=== PATIENT | female | born 2005 | race Caucasian/White ===

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

== ENCOUNTER 2023-05-06 20:47 | Emergency (ER) | payer BC ==
[~2023-05-06] VITALS: Ht 155 cm; Wt 63.5 kg
[~2023-05-06 20:47] MED LIST: DOXY100C5; ERGO800010
--- NOTE | 2023-05-06 21:09 | ED General ---
General Stated Complaint: CHRONIC SEIZURES Source of Information: Patient, Old Records, Other (MALE FRIEND) History of Present Illness Date Seen by Provider: May 06, 2023 Time Seen by Provider: 20:58 Initial Comments PT ARRIVES VIA POV FROM HOME WITH MALE FRIEND PT STATES SHE HAS HAD 7 SEIZURES IN THE LAST 3 DAYS, WITH 4 TODAY INCLUDING ONE ON THE WAY HERE EPISODES LAST 1-3 MINUTES, NO POST ICTAL SYMPTOMS, NO INCONTINENCE, NO INJURIES AND NOT TONGUE BITING, ETC SHE HAS BEEN SITTING OR LAYING DOWN EVERY TIME. HAS NOT FALLEN AT ANY TIME OR HIT HER HEAD FRIEND STATES SHE "BLACKS OUT, GOES LIMP AND THEN HAS TYPICAL SEIZURE" SHE HAS BEEN HAVING THESE FOR THE LAST YEAR, SHE HAS NEVER SEEN NEUROLOGIST OR HAD ANY TESTING FOR THESE PROBLEMS, AND NOT ON ANY SEIZURE MEDICATIONS. SHE HAS ALSO BEEN DX WITH POTS--THOSE SYMPTOMS ONGOING FOR 3 YEARS, IS ON METOPROLOL AND SEES DR. ROMANO WITH CARDIOLOGY. SHE HAS NOT BEEN ILL RECENTLY--NO FEVER/ SWEATS/CHILLS NO TICK OR MOSQUITO BITES LMP 1 WEEK AGO, NORMAL. NO CONTROL NO SMOKING/VAPING, NO DRUGS, NO ETOH USE. PCP: DR. [facility]IM[facility] Allergies and Home Medications Allergies Coded Allergies: Penicillins (Verified Allergy, Unknown, 04/11/17) ibuprofen (Verified Allergy, Unknown, 04/11/17) sulfamethoxazole (Verified Allergy, Unknown, 04/11/17) trimethoprim (Verified Allergy, Unknown, 04/11/17) Patient Home Medication List Doxycycline Hyclate (Doxycycline Hyclate) 100 Mg Capsule, (Reported) Entered as Reported by: BASHIR VEE on 09/11/222242 Ergocalciferol (Vitamin D2) (Ergocalciferol) 200 Mcg/Ml (8000 Unit/Ml) Drops, (Reported) Entered as Reported by: BASHIR VEE on 09/11/222242 Nitrofurantoin Monohyd/M-Cryst (Macrobid 100 mg Capsule) 100 Mg Capsule, 1 TAB PO BID Prescribed by: APRIL HILLMAN on 05/06/232222 Review of Systems Review of Systems Constitutional: no symptoms reported EENTM: no symptoms reported Respiratory: no symptoms reported Cardiovascular: see HPI Gastrointestinal: no symptoms reported Genitourinary: no symptoms reported Musculoskeletal: no symptoms reported Skin: no symptoms reported Psychiatric/Neurological: See HPI Past Yqpcprw-Zykrco-Navfcb Hx Immunizations Up To Date First/Initial COVID19 Vaccinat: x2 Second COVID19 Vaccination Patrick: carleen Past Medical History Surgery/Hospitalization HX: syncope, autism, depression, seizures, rabbit fever Surgeries: Yes Tonsillectomy Respiratory: No Cardiac: No Neurological: Yes (AUTISTIC, SENSORY ISSUES) Genitourinary: Yes (precocious puberty) Gastrointestinal: No Musculoskeletal: No Endocrine: Yes (precocious puberty) HEENT: No Cancer: No Psychosocial: Yes (AUTISTIC) Depression Integumentary: Yes Physical Exam Vital Signs Vital Signs - First Documented 05/06/23 20:56 Temp 37.0 Pulse 85 Resp 18 B/P (MAP) 134/81 (98) Pulse Ox 98 O2 Delivery Room Air Capillary Refill : Height, Weight, BMI Height: 5'1.00" Weight: 133lbs. oz. 60.586690ff; 31.00 BMI Method:Stated Focused Exam Lactate Level 05/06/23 21:15: Lactic Acid Level 1.45 Lactic Acid Level Laboratory Tests Test 05/06/23 21:15 Lactic Acid Level 1.45 MMOL/L (0.50-2.00) Progress/Results/Core Measures Suspected Sepsis SIRS Temperature: Pulse: Respiratory Rate: Laboratory Tests 05/06/23 21:10: White Blood Count 13.0H Blood Pressure / Mean: 05/06/23 21:15: Lactic Acid Level 1.45 Laboratory Tests 05/06/23 21:10: Creatinine 0.75, Platelet Count 387, Total Bilirubin 0.3 Results/Orders Lab Results Laboratory Tests Test 05/06/23 21:10 05/06/23 21:15 05/06/23 21:40 Range/Units White Blood Count 13.0 H 4.3-11.0 10^3/uL Red Blood Count 4.60 3.80-5.11 10^6/uL Hemoglobin 13.7 11.5-16.0 g/dL Hematocrit 41 35-52 % Mean Corpuscular Volume 90 80-99 fL Mean Corpuscular Hemoglobin 30 25-34 pg Mean Corpuscular Hemoglobin Concent 33 32-36 g/dL Red Cell Distribution Width 12.6 10.0-14.5 % Platelet Count 387 130-400 10^3/uL Mean Platelet Volume 10.4 9.0-12.2 fL Immature Granulocyte % (Auto) 0 % Neutrophils (%) (Auto) 55 42-75 % Lymphocytes (%) (Auto) 35 12-44 % Monocytes (%) (Auto) 7 0-12 % Eosinophils (%) (Auto) 3 0-10 % Basophils (%) (Auto) 1 0-10 % Neutrophils # (Auto) 7.1 1.8-7.8 10^3/uL Lymphocytes # (Auto) 4.6 H 1.0-4.0 10^3/uL Monocytes # (Auto) 0.9 0.0-1.0 10^3/uL Eosinophils # (Auto) 0.4 H 0.0-0.3 10^3/uL Basophils # (Auto) 0.1 0.0-0.1 10^3/uL Immature Granulocyte # (Auto) 0.0 0.0-0.1 10^3/uL D-Dimer 0.33 0.00-0.49 UG/ML Sodium Level 138 135-145 MMOL/L Potassium Level 3.9 3.6-5.0 MMOL/L Chloride Level 108 H 98-107 MMOL/L Carbon Dioxide Level 17 L 21-32 MMOL/L Anion Gap 13 5-14 MMOL/L Blood Urea Nitrogen 11 7-18 MG/DL Creatinine 0.75 0.60-1.30 MG/DL Estimat Glomerular Filtration Rate 118 BUN/Creatinine Ratio 15 Glucose Level 110 H 70-105 MG/DL Calcium Level 9.8 8.5-10.1 MG/DL Corrected Calcium 8.5-10.1 MG/DL Magnesium Level 2.2 1.6-2.4 MG/DL Total Bilirubin 0.3 0.1-1.0 MG/DL Aspartate Amino Transf (AST/SGOT) 22 5-34 U/L Alanine Aminotransferase (ALT/SGPT) 17 0-55 U/L Alkaline Phosphatase 50 40-136 U/L Total Creatine Kinase 94 29-168 U/L Creatine Kinase MB 0.5 <6.6 NG/ML Myoglobin 20.7 10.0-92.0 NG/ML Total Protein 8.5 H 6.4-8.2 GM/DL Albumin 4.8 H 3.2-4.5 GM/DL TSH [place] Testing 4.89 0.35-4.94 UIU/ML Serum Test, Qualitative NEGATIVE NEGATIVE Glucometer 109 70-110 MG/DL Lactic Acid Level 1.45 0.50-2.00 MMOL/L Urine Color YELLOW Urine Clarity CLEAR Urine pH 7.0 5-9 Urine Specific [place] 1.020 1.016-1.022 Urine Protein NEGATIVE NEGATIVE Urine Glucose (UA) NEGATIVE NEGATIVE Urine Ketones 1+ H NEGATIVE Urine Nitrite NEGATIVE NEGATIVE Urine Bilirubin NEGATIVE NEGATIVE Urine Urobilinogen 0.2 < = 1.0 MG/DL Urine Leukocyte Esterase 1+ H NEGATIVE Urine RBC (Auto) NEGATIVE NEGATIVE Urine RBC NONE /HPF Urine WBC 2-5 /HPF Urine Squamous Epithelial Cells 2-5 /HPF Urine Crystals NONE /LPF Urine Bacteria FEW H /HPF Urine Casts NONE /LPF Urine Mucus NEGATIVE /LPF Urine Culture Indicated YES Urine Opiates Screen NEGATIVE NEGATIVE Urine Oxycodone Screen NEGATIVE NEGATIVE Urine Methadone Screen NEGATIVE NEGATIVE Urine Barbiturates Screen NEGATIVE NEGATIVE Ur Tricyclic Antidepressants Screen NEGATIVE NEGATIVE Urine Phencyclidine Screen NEGATIVE NEGATIVE Urine Amphetamines Screen NEGATIVE NEGATIVE Urine Methamphetamines Screen NEGATIVE NEGATIVE Urine Benzodiazepines Screen NEGATIVE NEGATIVE Urine Cocaine Screen NEGATIVE NEGATIVE Urine Cannabinoids Screen NEGATIVE NEGATIVE My Orders Orders - APRIL HILLMAN DO Accucheck Stat ONCE (05/06/23 20:57) Ed Iv/Invasive Line Start (05/06/23 20:57) Urine Bedside (05/06/23 20:57) Ekg Tracing (05/06/23 20:57) Monitor-Rhythm Ecg Trace Only (05/06/23 20:57) Orthostatic Vital Signs (Adult (05/06/23 20:57) Cbc And Automated Diff (05/06/23 20:57) Comprehensive Metabolic Panel (05/06/23 20:57) Creatine Kinase (05/06/23 20:57) Creatine Kinase Mb (05/06/23 20:57) Fibrin Degradation Products (05/06/23 20:57) Drug Screen Stat (Urine) (05/06/23 20:57) Magnesium (05/06/23 20:57) Thyroid Analyzer (05/06/23 20:57) Ua Culture If Indicated (05/06/23 20:57) Myoglobin Serum (05/06/23 20:57) Ct Head Wo (05/06/23 20:59) Lactic Acid Analyzer (05/06/23 21:11) Chest 1 View, Ap/Pa Only (05/06/23 21:12) Ed Iv/Invasive Line Start (05/06/23 21:17) Lactated Ringers 1,000 Ml (Lactated Ring (05/06/23 21:30) Hcg,Qualitative Serum (05/06/23 21:35) Urine Culture (05/06/23 21:40) Medications Given in ED Current Medications Medications Dose Ordered Sig/[place]ton Route Start Time Stop Time Status Last Admin Dose Admin Lactated Ringer's 1,000 ml @ 0 mls/hr Q0M ONCE IV 05/06/23 21:30 05/06/23 21:31 DC 05/06/23 21:42 0 MLS/HR Vital Signs/I&O 05/06/23 05/06/23 20:56 21:36 Temp 37.0 Pulse 85 71 68 83 Resp 18 B/P (MAP) 134/81 (98) 115/79 (91) 117/80 (92) 114/81 (92) Pulse Ox 98 O2 Delivery Room Air Capillary Refill : Progress Note : Progress Note VITALS ON ARRIVAL: TEMP 37.0=98.6, HR 85, RR 18, BP 115/79, O2 SAT 98% ON ROOM AIR LABS: -CBC NORMAL -CMP NORMAL -CK, CK-MB, MYOGLOBIN NORMAL -LACTIC ACID NORMAL -D-DIMER NEGATIVE -HCG NEGATIVE -UA WITH FEW BACTERIA, 1+ LEUKOCYTES, 2-5 WBC -UDS NEGATIVE EKG NORMAL CXR NORMAL CT HEAD NORMAL NO SYMPTOMS OF ANY KIND DURING ER STAY VITALS STABLE DISCUSSED TEST RESULTS, ANTICIPATED COURSE, SYMPTOMATIC TREATMENT, MEDICATIONS, NEED FOR FOLLOW UP AND RETURN PRECAUTIONS ADVISED PT THAT SHE MAY NEED ADDITIONAL OUTPATIENT TESTS AND POSSIBLE REFERRAL TO NEUROLOGIST TO FURTHER EVALUATE HER SYMPTOMS REVIEWED PRIOR RECORDS--ALL ER VISITS, ECG Initial ECG Impression Date: May 06, 2023 Initial ECG Impression Time: 21:26 Initial ECG Rate: 71 Initial ECG Rhythm: Normal Sinus Initial ECG Intervals: Normal Initial ECG Impression: Normal Initial ECG Comparisson: Unchanged Comment INTERPRETED BY ME Diagnostic Imaging Comments CXR--NO ACUTE PROCESS, PENDING RADIOLOGIST REVIEW CT HEAD--PER RADIOLOGIST REPORT AT 2220 FINDINGS: There is no midline shift or mass effect. The ventricles and sulci are unremarkable. No evidence for acute intracranial hemorrhage, abnormal extra-axial fluid collections or cerebral edema is present. The basilar cisterns are unremarkable. The bony calvarium is intact. The visualized paranasal sinuses and mastoid air cells are clear. IMPRESSION: Negative appearing noncontrast CT of the head. Reviewed: Reviewed by Me Departure Impression Primary Impression: Syncope Additional Impressions: REPORTED SEIZURE LIKE ACTIVITY UTI (urinary tract infection) Disposition: HOME, SELF-CARE Condition: Stable Departure-Patient Inst. Decision time for Depature: 22:22 Referrals: CHRISTO ZAVALA MD (PCP/Family) Primary Care Physician Patient Instructions: Urinary Tract Infection, Adult ED, Fainting, Adult ED, Seizures, Adult (DC) Add. Discharge Instructions: LOTS OF FLUIDS CONTINUE YOUR REGULAR MEDICATIONS PRESCRIBED FOLLOW UP WITH DR. ZAVALA NEXT WEEK FOR FURTHER CARE Scripts Nitrofurantoin Monohyd/M-Cryst (Macrobid 100 mg Capsule) 100 Mg Capsule 1 TAB PO BID, #20 CAP Prov: APRIL HILLMAN DO 05/06/23 APRIL HILLMNA DO May 06, 2023 21:09
[2023-05-06 21:17] LABS: BASOPHILS # (AUTO) 0.1 10^3/uL (0.0-0.1); BASOPHILS % (AUTO) 1 % (0-10); EOSINOPHILS # (AUTO) 0.4 10^3/uL (0.0-0.3); EOSINOPHILS % (AUTO) 3 % (0-10); HEMATOCRIT 41 % (35-52); HEMOGLOBIN 13.7 g/dL (11.5-16.0); LYMPHOCYTES # (AUTO) 4.6 10^3/uL (1.0-4.0); LYMPHOCYTES % (AUTO) 35 % (12-44); MEAN CORPUSCULAR HEMOGLOBIN 30 pg (25-34); MEAN CORPUSCULAR HGB CONC 33 g/dL (32-36); MEAN CORPUSCULAR VOLUME 90 fL (80-99); MEAN PLATELET VOLUME 10.4 fL (9.0-12.2); MONOCYTES # (AUTO) 0.9 10^3/uL (0.0-1.0); MONOCYTES % (AUTO) 7 % (0-12); NEUTROPHILS # (AUTO) 7.1 10^3/uL (1.8-7.8); NEUTROPHILS % (AUTO) 55 % (42-75); PLATELET COUNT 387 10^3/uL (130-400)
[2023-05-06] MEDS ORDERED: LACTATED RINGERS 1,000 ML 1,000 ML IV ONE (21:30)
[2023-05-06 21:34] VITALS: BP 115/79
[2023-05-06 21:35] VITALS: BP 117/80
[2023-05-06 21:36] VITALS: BP_SYST 114; BP_SYST 115; BP_SYST 117; BP_DIAS 79; BP_DIAS 80; BP_DIAS 81
[2023-05-06 21:45] LABS: ALANINE AMINOTRANSFERASE 17 U/L (0-55); ALBUMIN 4.8 GM/DL (3.2-4.5); ALKALINE PHOSPHATASE 50 U/L (40-136); BILIRUBIN,TOTAL 0.3 MG/DL (0.1-1.0); BUN/CREATININE RATIO 15; CALCIUM 9.8 MG/DL (8.5-10.1); CARBON DIOXIDE 17 MMOL/L (21-32); CHLORIDE 108 MMOL/L (98-107); CREATINE KINASE 94 U/L (29-168); CREATININE SERUM 0.75 MG/DL (0.60-1.30); GFR ESTIMATED 118; GLUCOSE 110 MG/DL (70-105); MAGNESIUM 2.2 MG/DL (1.6-2.4); POTASSIUM 3.9 MMOL/L (3.6-5.0); SODIUM 138 MMOL/L (135-145); TOTAL PROTEIN 8.5 GM/DL (6.4-8.2)
[2023-05-06 21:54] LABS: BACTERIA,URINE FEW /HPF; BILIRUBIN,URINE NEGATIVE (NEGATIVE); CLARITY,URINE CLEAR; COLOR,URINE YELLOW; GLUCOSE, URINE (UA) NEGATIVE (NEGATIVE); KETONES,URINE 1+ (NEGATIVE); LEUKOCYTE ESTERASE ,URINE 1+ (NEGATIVE); NITRITE,URINE NEGATIVE (NEGATIVE); PROTEIN,URINE NEGATIVE (NEGATIVE)
[2023-05-06 22:01] LABS: AMPHETAMINE SCREEN, URINE NEGATIVE (NEGATIVE); BARBITURATE SCREEN URINE NEGATIVE (NEGATIVE); CANNABINOID SCREEN, URINE NEGATIVE (NEGATIVE); COCAINE SCREEN URINE NEGATIVE (NEGATIVE); METHADONE STAT NEGATIVE (NEGATIVE); OPIATE SCREEN URINE NEGATIVE (NEGATIVE); OXYCODONE STAT NEGATIVE (NEGATIVE); TRICYCLIC ANTIDEPRESSANTS SCRE NEGATIVE (NEGATIVE)
[2023-05-06 22:05] LABS: CREATINE KINASE MB 0.5 NG/ML (<6.6); TSH (THYROID ANALYZER) 4.89 UIU/ML (0.35-4.94)
--- NOTE | 2023-05-06 22:16 | Diagnostic Imaging Report ---
PROCEDURE: CT head without contrast. TECHNIQUE: Multiple contiguous axial images were obtained through the brain without the use of intravenous contrast. Auto Exposure Controls were utilized during the CT exam to meet ALARA standards for radiation dose reduction. INDICATION: 17-year-old female, seizures over the past 3 days. CORRELATION: None FINDINGS: There is no midline shift or mass effect. The ventricles and sulci are unremarkable. No evidence for acute intracranial hemorrhage, abnormal extra-axial fluid collections or cerebral edema is present. The basilar cisterns are unremarkable. The bony calvarium is intact. The visualized paranasal sinuses and mastoid air cells are clear. IMPRESSION: Negative appearing noncontrast CT of the head. Dictated by: Dictated on workstation # [id number]
[2023-05-06] MEDS ORDERED: NITR-65 PO (22:23)
[2023-05-06 22:33] VITALS: BP 130/88
--- NOTE | 2023-05-07 07:10 | Diagnostic Imaging Report ---
CLINICAL INDICATION: Patient complains of seizures for the past 3 days. EXAM: Chest x-ray, PA view only. COMPARISON: Chest x-ray dated 04/06/2020. FINDINGS: Lungs/pleura: Lungs are clear. There is no pneumothorax. There is no pleural effusion. Mediastinum: Unremarkable. Pulmonary vasculature: Unremarkable. Heart: Unremarkable. Bones/extrathoracic soft tissue: Unremarkable. IMPRESSION: There is no radiographic evidence of acute cardiopulmonary process. I agree with the Emergency Room clinician's preliminary impression. Dictated by: Dictated on workstation # [id number]
== END 2023-05-06 22:33 | disposition home or self-care (01) ==
LOC: EDUNIT# 20:47 → ER 20:52
DX: R25.8 Other abnormal involuntary movements (principal); N39.0 Urinary tract infection, site not specified; R55 Syncope and collapse
CPT/HCPCS: 36415; 70450; 71045; 80053; 80306; 81000; 82550; 82553; 82947; 83605; 83735; 83874; 84443; 84703; 85025; 85379; 87088; 93005; 93041